=== PATIENT | male | born 2005 | race Caucasian/White ===

== ENCOUNTER 2024-12-23 10:30 | Emergency (ER) | payer SELFPAY ==
[~2024-12-23] VITALS: Ht 188 cm; Wt 59.1 kg
[2024-12-23 10:34] VITALS: BP 119/81; PULSE 99; RESP 18; TEMP 97.9; O2SAT 99
== END 2024-12-23 10:54 | disposition home or self-care (01) ==
LOC: ER 10:31
DX: Z00.00 Encounter for general adult medical examination without abnormal findings (principal)
CPT/HCPCS: 99283